=== PATIENT | female | born 1935 | race Caucasian/White ===

== ENCOUNTER 2016-11-27 14:59 | Inpatient (IN) | payer MEDICARE, OTHER ==
[~2016-11-27] VITALS: Ht 167.6 cm; Wt 47.3 kg
[2016-11-27] MEDS ORDERED: SODIUM CHLORIDE 0.9% 1,000 ML IV ONE (15:23)
[2016-11-27] MEDS ORDERED: ASPIRIN 81 MG TABLET CHEW PO ONE (15:30)
[2016-11-27] MEDS ORDERED: ASPIRIN 81 MG TABLET CHEW ONE (15:46)
[2016-11-27 16:07] LABS: ASPARTATE AMINO TRANSFERASE 28 U/L (15-37); BLOOD UREA NITROGEN 29 mg/dL (7-18)
[2016-11-27 16:14] LABS: IS PT STATUS REG ER OR PRE ER? YES
[2016-11-27] MEDS ORDERED: LEVO88TA4 PO (16:18)
[2016-11-27] MEDS ORDERED: ATOR20TA9 PO (16:18)
[2016-11-27] MEDS ORDERED: CLOP75TA PO (16:18)
[2016-11-27] MEDS ORDERED: ASPI-496 PO (16:18)
[2016-11-27] MEDS ORDERED: LISI2.5T PO (16:18)
[2016-11-27] MEDS ORDERED: BUPR150T13 PO (16:18)
[2016-11-27] MEDS ORDERED: FURO20TA3 PO (16:18)
[2016-11-27] MEDS ORDERED: CARV6.252 PO (16:18)
[2016-11-27] MEDS ORDERED: HEPARIN 25,000 UNITS/500ML PMX 500 ML IV PRN ×2 (17:00→20:00)
[2016-11-27] MEDS ORDERED: HEPARIN 5,000 UNITS/ML, 1ML IV ONE ×2 (17:00→20:00)
[2016-11-27] MEDS ORDERED: HEPARIN 5,000 UNITS/ML, 1ML IV PRN ×2 (17:00→20:00)
[2016-11-27] MEDS ORDERED: HEPARIN 5,000 UNITS/ML, 1ML ONE (17:12)
[2016-11-27] MEDS ORDERED: HEPARIN 25,000 UNITS/500ML PMX 500 ML ONE (17:12)
[2016-11-27] MEDS ORDERED: ONDANSETRON 2MG/ML, 2ML IVPush PRN (17:30)
[2016-11-27] MEDS ORDERED: morphine SULFATE 10 MG/ML, 1ML IVPush PRN (17:30)
[2016-11-27] MEDS ORDERED: GUAIFENESIN/DM 200-20MG, 10ML UDC PO PRN (17:30)
[2016-11-27 18:51] VITALS: BP 135/79
[2016-11-27 21:00] VITALS: BP 124/68
[2016-11-27] MEDS ORDERED: FAMOTIDINE 20 MG/2 ML IVPush SCH (21:00)
[2016-11-27] MEDS: FAMOTIDINE 20 MG TABLET PO SCH ×2 (22:55→22:59)
[2016-11-27] MEDS: ATORVASTATIN 20 MG TABLET PO SCH ×2 (22:55→22:59)
[2016-11-27] MEDS: SODIUM CHLORIDE 0.9% 1,000 ML IV SCH (23:22)
[2016-11-27 23:52] LABS: IS PT STATUS REG ER OR PRE ER? NO
[2016-11-28 02:05] VITALS: BP 112/64
[2016-11-28] MEDS: LEVOTHYROXINE 88 MCG TABLET PO SCH (05:30)
[2016-11-28 06:34] LABS: BLOOD UREA NITROGEN 36 mg/dL (7-18)
[2016-11-28 09:00] VITALS: BP 134/61
[2016-11-28] MEDS ORDERED: CARVEDILOL 6.25 MG TABLET PO SCH (09:00)
[2016-11-28] MEDS: SODIUM CHLORIDE 0.9% 1,000 ML IV SCH (09:20)
[2016-11-28] MEDS: ASPIRIN 81 MG TABLET EC PO SCH (09:21)
[2016-11-28] MEDS: LISINOPRIL 5 MG TABLET PO SCH (09:21)
[2016-11-28] MEDS: CLOPIDOGREL 75 MG TABLET PO SCH (09:21)
[2016-11-28] MEDS: ATORVASTATIN 20 MG TABLET PO SCH (09:22)
[2016-11-28] MEDS: BUPROPION SR 150 MG TABLET PO SCH (09:22)
[2016-11-28] MEDS: FAMOTIDINE 20 MG TABLET PO SCH (09:23)
[2016-11-28 12:03] LABS: IS PT STATUS REG ER OR PRE ER? NO
[2016-11-28] MEDS: DOXYCYCLINE 100MG TABLET PO SCH ×2 (12:07→21:32)
[2016-11-28] MEDS: GUAIFENESIN 200 MG TABLET PO SCH ×3 (12:07→21:31)
[2016-11-28 15:06] VITALS: BP 122/58
[2016-11-28 17:06] LABS: IS PT STATUS REG ER OR PRE ER? NO
[2016-11-28] MEDS ORDERED: methylPREDNISolone 4mg DOSE PACK ONE (17:27)
[2016-11-28] MEDS ORDERED: methylPREDNISolone 4mg DOSE PACK PO SCH (17:30)
[2016-11-28 19:22] VITALS: BP 122/61
[2016-11-28] MEDS: CARVEDILOL 6.25 MG TABLET PO SCH (21:31)
[2016-11-29 00:58] VITALS: BP 132/68
[2016-11-29 05:45] LABS: BLOOD UREA NITROGEN 23 mg/dL (7-18)
[2016-11-29] MEDS: GUAIFENESIN 200 MG TABLET PO SCH ×2 (06:50→11:39)
[2016-11-29] MEDS: LEVOTHYROXINE 88 MCG TABLET PO SCH (06:50)
[2016-11-29 07:01] VITALS: BP 154/65
[2016-11-29] MEDS ORDERED: FAMOTIDINE 20 MG TABLET PO SCH (09:00)
[2016-11-29] MEDS: ASPIRIN 81 MG TABLET EC PO SCH (09:02)
[2016-11-29] MEDS: CARVEDILOL 6.25 MG TABLET PO SCH (09:02)
[2016-11-29] MEDS: LISINOPRIL 5 MG TABLET PO SCH (09:02)
[2016-11-29] MEDS: CLOPIDOGREL 75 MG TABLET PO SCH (09:02)
[2016-11-29] MEDS: BUPROPION SR 150 MG TABLET PO SCH (09:02)
[2016-11-29] MEDS: DOXYCYCLINE 100MG TABLET PO SCH (09:02)
[2016-11-29] MEDS ORDERED: METH4TAB PO (10:44)
[2016-11-29] MEDS ORDERED: DOXY100T PO (10:44)
== END 2016-11-29 12:25 | disposition home or self-care (01) | DRG 280 ==
LOC: ED 16:42 → EDIP 16:43 → ED 16:49 → 5SO 18:38 → DCLOUNGE 11-29 12:00
PROVIDERS: ADMIT Internal Medicine; ATTEND Internal Medicine
DX: I21.4 Non-ST elevation (NSTEMI) myocardial infarction (principal); K85.90 Acute pancreatitis without necrosis or infection, unspecified; N17.0 Acute kidney failure with tubular necrosis; I13.0 Hypertensive heart and chronic kidney disease with heart failure and stage 1 through stage 4 chronic kidney disease, or unspecified chronic kidney disease; I47.2 Ventricular tachycardia; I50.22 Chronic systolic (congestive) heart failure; J44.0 Chronic obstructive pulmonary disease with (acute) lower respiratory infection; I25.5 Ischemic cardiomyopathy; E78.5 Hyperlipidemia, unspecified; E86.0 Dehydration; F17.210 Nicotine dependence, cigarettes, uncomplicated; I73.9 Peripheral vascular disease, unspecified; J20.9 Acute bronchitis, unspecified; F32.9 Major depressive disorder, single episode, unspecified; I25.110 Atherosclerotic heart disease of native coronary artery with unstable angina pectoris; K52.9 Noninfective gastroenteritis and colitis, unspecified; N18.3 Chronic kidney disease, stage 3 (moderate); Z66 Do not resuscitate; Z79.02 Long term (current) use of antithrombotics/antiplatelets; Z79.82 Long term (current) use of aspirin; I25.2 Old myocardial infarction; Z79.899 Other long term (current) drug therapy; Z82.49 Family history of ischemic heart disease and other diseases of the circulatory system; Z95.5 Presence of coronary angioplasty implant and graft; Z90.710 Acquired absence of both cervix and uterus
CPT/HCPCS: 36415; 71010; 80048; 80053; 80061; 83690; 83880; 84443; 84484; 85025; 85520; 85610; 85730; 87324; 93005; 93306; 96361; 96365; 96375; J1644; J7509; J7030

== ENCOUNTER → 2018-08-21 | Outpatient (CLI) | payer MEDICARE, OTHER ==
[~2018-08-21] MED LIST: ASPI-496 PO; ATOR20TA37 PO; BUPR150T13 PO; CARV6.252 PO; CLOP75TA PO; DOXY100T PO; FURO20TA3 PO; LEVO88TA4 PO; LISI2.5T PO; METH4TAB PO
== END | disposition home or self-care (01) ==
LOC: CVU 15:48
PROVIDERS: ATTEND Physician Assistant
DX: I08.3 Combined rheumatic disorders of mitral, aortic and tricuspid valves (principal); I50.22 Chronic systolic (congestive) heart failure; I25.2 Old myocardial infarction; F17.210 Nicotine dependence, cigarettes, uncomplicated; Z95.818 Presence of other cardiac implants and grafts
CPT/HCPCS: 93306

== ENCOUNTER → 2018-12-07 | Outpatient (CLI) | payer MEDICARE, OTHER | END | disposition home or self-care (01) | LOC: CFH 12:38 | PROVIDERS: ATTEND Internal Medicine | DX: J44.0 Chronic obstructive pulmonary disease with (acute) lower respiratory infection (principal); J18.1 Lobar pneumonia, unspecified organism; I77.810 Thoracic aortic ectasia; I51.7 Cardiomegaly | CPT/HCPCS: 71046 ==

== ENCOUNTER 2018-12-21 15:58 | Outpatient (CLI) | payer MEDICARE, OTHER | END 2018-12-21 23:59 | disposition home or self-care (01) | LOC: CFH 15:58 | PROVIDERS: ATTEND Internal Medicine | DX: J84.10 Pulmonary fibrosis, unspecified (principal); I51.7 Cardiomegaly | CPT/HCPCS: 71046 ==

== ENCOUNTER 2018-12-22 09:49 | Observation (INO) | payer MEDICARE, OTHER ==
[~2018-12-22] VITALS: Ht 170.2 cm; Wt 48.8 kg
--- NOTE | 2018-12-22 10:14 | NUR ---
83 YEAR OLD FEMALE PRESENTS TO THE ER FOR INCREASE IN WEAKNESS THAT HAS BEEN PROGRESSING OVER THE PAST YEAR. PT CAME TODAY DUE TO THE INCREASE IN WEAKNESS WITH ASSOCIATED SOB THAT HAS NOW STARTED.. PT IN BED AND IN GOWN. CARDIAC MONITORING, O2, AND NIBP MONITORING IN PLACE. EKG DONE AT THIS TIME. NO WANTS OR NEEDS AT THIS TIME. AWAITING FURTHER ORDERS.
[2018-12-22] MEDS ORDERED: SODIUM CHLORIDE FLUSH 10ML SYR IVF ONE (10:30)
[2018-12-22 10:52] LABS: BASOPHILS # (AUTO) 0.05 x10^3/uL (0-0.1); BASOPHILS % (AUTO) 1 % (0-1); EOSINOPHILS # (AUTO) 0.62 x10^3/uL (0-0.4); EOSINOPHILS % (AUTO) 9 % (1-7); LYMPHOCYTES # (AUTO) 0.81 x10^3/uL (1-3.4); LYMPHOCYTES % (AUTO) 12 % (22-44); MD NO; MEAN CORPUSCULAR HEMOGLOBIN 29.6 pg (27.0-34.8); MEAN CORPUSCULAR HGB CONC 32.2 g/dL (32.4-35.8); MEAN CORPUSCULAR VOLUME 91.9 fL (80-100); MEAN PLATELET VOLUME 8.4 fL (7.4-10.4); MONOCYTES # (AUTO) 0.91 x10^3/uL (0.2-0.8); MONOCYTES % (AUTO) 13 % (2-9); NEUTROPHILS # (AUTO) 4.61 x10^3/uL (1.8-6.8); NEUTROPHILS % (AUTO) 66 % (42-75); PLATELET COUNT 204 x10^3/uL (130-400); RED BLOOD COUNT 3.49 x10^6/uL (3.82-5.3); RED CELL DISTRIBUTION WIDTH 19.1 % (9.6-15.2)
[2018-12-22 11:01] LABS: INTERNATIONAL NORMALIZED RATIO 1.15 (0.93-1.1)
[2018-12-22 11:05] LABS: ALANINE AMINOTRANSFERASE 10 U/L (12-78); ALBUMIN 3.4 g/dL (3.4-5.0); ANION GAP 6 mmol/L (5-15); CALCIUM 8.8 mg/dL (8.5-10.1); CHLORIDE 110 mmol/L (98-107); CREATININE 1.01 mg/dL (0.55-1.02)
[2018-12-22 11:10] LABS: ALKALINE PHOSPHATASE 83 U/L (45-117); BILIRUBIN,TOTAL 0.7 mg/dL (0.2-1.0); TOTAL PROTEIN 6.2 g/dL (6.4-8.2); TROPONIN I 0.044 ng/mL (0.000-0.045)
[2018-12-22 11:16] LABS: THYROID STIMULATING HORMONE 0.266 mIU/L (0.358-3.740)
--- NOTE | 2018-12-22 12:06 | NUR ---
unable to complete med rec. pt does not know meds and doses.
[2018-12-22 12:39] LABS: MICROSCOPIC AUTO
[2018-12-22 12:47] VITALS: BP 145/72
[2018-12-22 14:23] VITALS: BP 145/72
[2018-12-22 14:24] VITALS: BP 145/72
[2018-12-22] MEDS ORDERED: ONDANSETRON ODT 4 MG PO PRN (14:30)
[2018-12-22] MEDS ORDERED: ENOXAPARIN 40 MG/0.4 ML SQ SCH (14:30)
[2018-12-22] MEDS ORDERED: LABETALOL 5 MG/ML SYRINGE IVPush PRN (14:30)
[2018-12-22] MEDS ORDERED: ONDANSETRON 2MG/ML, 2ML IVPush PRN (14:30)
[2018-12-22] MEDS ORDERED: POLYETHYLENE GLYCOL 17 GM PACKET PO PRN (14:30)
[2018-12-22] MEDS ORDERED: CARVEDILOL 6.25 MG TABLET PO SCH (21:00)
[2018-12-22] MEDS ORDERED: ATORVASTATIN 20 MG TABLET PO SCH (21:00)
[2018-12-23] MEDS ORDERED: LEVOTHYROXINE 88 MCG TABLET PO SCH (07:30)
[2018-12-23] MEDS ORDERED: CLOPIDOGREL 75 MG TABLET PO SCH (09:00)
[2018-12-23] MEDS ORDERED: SENNA/DOCUSATE TABLET PO SCH (09:00)
[2018-12-23] MEDS ORDERED: LISINOPRIL 5 MG TABLET PO SCH (09:00)
[2018-12-23] MEDS ORDERED: ASPIRIN 81 MG TABLET EC PO SCH (09:00)
== END 2018-12-22 18:27 | disposition left against medical advice (07) ==
LOC: ED 11:05 → INTOOBSV 11:15 → EDIP 11:15 → 5SO 12:38
PROVIDERS: ADMIT Hospitalist; ATTEND Hospitalist
DX: R06.02 Shortness of breath (principal); D64.9 Anemia, unspecified; I27.20 Pulmonary hypertension, unspecified; I50.30 Unspecified diastolic (congestive) heart failure; I25.5 Ischemic cardiomyopathy; I25.2 Old myocardial infarction; I25.10 Atherosclerotic heart disease of native coronary artery without angina pectoris; E03.9 Hypothyroidism, unspecified; I35.1 Nonrheumatic aortic (valve) insufficiency; I73.9 Peripheral vascular disease, unspecified; F17.210 Nicotine dependence, cigarettes, uncomplicated; Z66 Do not resuscitate; Z90.710 Acquired absence of both cervix and uterus; Z95.5 Presence of coronary angioplasty implant and graft
CPT/HCPCS: 36415; 71045; 80053; 81001; 83880; 84443; 84484; 85025; 85610; 93005; 99284; G0378

== ENCOUNTER 2019-01-04 11:27 | Outpatient (CLI) | payer MEDICARE, OTHER | END 2019-01-04 23:59 | disposition home or self-care (01) | LOC: CFH 11:27 | PROVIDERS: ATTEND Internal Medicine | DX: M16.11 Unilateral primary osteoarthritis, right hip (principal) ==

== ENCOUNTER 2019-04-02 07:32 | Inpatient (IN) | payer MEDICARE, OTHER ==
[~2019-04-02] VITALS: Ht 165.1 cm; Wt 49.5 kg
--- NOTE | 2019-04-02 07:39 | NUR ---
PATIENT BROUGHT IN [facility] BY [facility] WITH CHIEF COMPLAINT OF SLURRED SPEACH STARTING AT 2030 PM LAST NIGHT, NO OTHER NEURO DEFICITS OF COMPLAINTS. THIS MORNING SPEECH STILL ALTERED AND PATIENT STATED SHES STARTED FEELING SOB THUS NOTIFIYING EMS. THE PATIENT ARRIVES ALERT ORIENTS, CMS AND STRENGTH INTACT. MINIMAL SLUR TO SPEECH AT THIS TIME, VITAL SIGNS STABLE.
[2019-04-02] MEDS ORDERED: SPIR25TA5 PO (07:56)
[2019-04-02] MEDS ORDERED: FURO20TA3 PO (07:56)
[2019-04-02 08:17] LABS: BASOPHILS % (AUTO) 0 % (0-1); EOSINOPHILS % (AUTO) 9 % (1-7); LYMPHOCYTES # (AUTO) 1.09 x10^3/uL (1-3.4); LYMPHOCYTES % (AUTO) 20 % (22-44); MD NO; MEAN CORPUSCULAR VOLUME 86.9 fL (80-100); MONOCYTES # (AUTO) 0.71 x10^3/uL (0.2-0.8); MONOCYTES % (AUTO) 13 % (2-9); NEUTROPHILS # (AUTO) 3.08 x10^3/uL (1.8-6.8); NEUTROPHILS % (AUTO) 57 % (42-75); PLATELET COUNT 247 x10^3/uL (130-400); RED BLOOD COUNT 3.83 x10^6/uL (3.82-5.3); RED CELL DISTRIBUTION WIDTH 19.6 % (9.6-15.2)
[2019-04-02 08:22] LABS: ALANINE AMINOTRANSFERASE 20 U/L (12-78); ALBUMIN 3.8 g/dL (3.4-5.0); ANION GAP 5 mmol/L (5-15); CALCIUM 9.1 mg/dL (8.5-10.1); CHLORIDE 112 mmol/L (98-107); CREATININE 1.35 mg/dL (0.55-1.02)
--- NOTE | 2019-04-02 08:22 | NUR ---
PATIENT TO CT
[2019-04-02 08:26] LABS: ALKALINE PHOSPHATASE 105 U/L (45-117); BILIRUBIN,TOTAL 0.5 mg/dL (0.2-1.0); TOTAL PROTEIN 6.8 g/dL (6.4-8.2); TROPONIN I 0.054 ng/mL (0.000-0.045)
[2019-04-02] MEDS ORDERED: FUROSEMIDE 20 MG/2 ML ONE (08:27)
[2019-04-02 08:30] LABS: INTERNATIONAL NORMALIZED RATIO 1.2 (0.93-1.1); PROTHROMBIN TIME 12.5 Seconds (9.6-11.5)
[2019-04-02] MEDS ORDERED: FUROSEMIDE 40 MG/4 ML IV ONE ×2 (08:30→14:00)
--- NOTE | 2019-04-02 08:35 | NUR ---
PATIENT BACK FROM CT, RESTING IN BED, CALL LIGHT IN REACH
--- NOTE | 2019-04-02 08:53 | NUR ---
REPORT TO SOFÍA ARRINGTON
--- NOTE | 2019-04-02 08:54 | NUR ---
REPORT RECEIVED FROM MURPHY MORAN.
--- NOTE | 2019-04-02 10:07 | NUR ---
REPORT CALLED TO PT UPDATED ON PLAN OF CARE AND AWAITING TRANSPORT AT THIS TIME. DENIES ANY FURTHER NEEDS OR CONCERNS.
[2019-04-02] MEDS ORDERED: ACETAMINOPHEN 650 MG/20.3 ML UDC PO PRN (10:30)
[2019-04-02] MEDS ORDERED: ONDANSETRON 4 MG TABLET PO PRN (10:30)
[2019-04-02] MEDS ORDERED: ONDANSETRON 2MG/ML, 2ML IVPush PRN (10:30)
[2019-04-02] MEDS ORDERED: OMNIPAQUE 350 MG/ML, 100ML BOTTLE ONE (11:02)
[2019-04-02] MEDS: NICOTINE 7 MG/24 HR PATCH.TD24 TD SCH (11:30)
[2019-04-02 11:48] VITALS: BP 146/79
[2019-04-02 12:33] LABS: HEMOGLOBIN A1C 5.8 % (4.2-6.3)
[2019-04-02 14:19] LABS: TROPONIN I 0.048 ng/mL (0.000-0.045)
[2019-04-02] MEDS ORDERED: FUROSEMIDE 40 MG TABLET ONE (16:22)
[2019-04-02] MEDS: FUROSEMIDE 80 MG TABLET PO SCH (16:25)
[2019-04-02 16:30] VITALS: BP 147/77
[2019-04-02 19:54] VITALS: BP 143/71
[2019-04-02] MEDS: ATORVASTATIN 80 MG TABLET PO SCH (20:47)
[2019-04-02] MEDS ORDERED: ATORVASTATIN 40 MG TABLET PO SCH (21:00)
[2019-04-02 21:54] LABS: MICROSCOPIC NOT IND
[2019-04-03] VITALS (7 sets, daily range): BP systolic 105–139; BP diastolic 59–77
[2019-04-03 05:00] LABS: MEAN CORPUSCULAR HEMOGLOBIN 27.4 pg (27.0-34.8); MEAN CORPUSCULAR HGB CONC 31.7 g/dL (32.4-35.8); MEAN CORPUSCULAR VOLUME 86.7 fL (80-100); PLATELET COUNT 227 x10^3/uL (130-400); RED BLOOD COUNT 3.67 x10^6/uL (3.82-5.3); RED CELL DISTRIBUTION WIDTH 19.6 % (9.6-15.2)
[2019-04-03 05:06] LABS: ANION GAP 7 mmol/L (5-15); CALCIUM 9.2 mg/dL (8.5-10.1); CHLORIDE 107 mmol/L (98-107)
[2019-04-03] MEDS: ASPIRIN 325 MG TABLET PO SCH (05:11)
[2019-04-03 05:12] LABS: CHOLESTEROL, TOTAL 132 mg/dL (140-239); HDL CHOL % 50 % (28-40); HDL CHOLESTEROL (DIRECT) 66 mg/dL (40-60); LDL CHOLESTEROL,CALCULATED 49 mg/dL (54-169); LDL/HDL RATIO 0.7 (0.5-3.0); TRIGLYCERIDES 85 mg/dL (50-200); VLDL CHOLESTEROL 17 mg/dL (0-25)
[2019-04-03 05:42] LABS: BASOPHILS # (AUTO) 0.02 x10^3/uL (0-0.1); BASOPHILS % (AUTO) 0 % (0-1); EOSINOPHILS # (AUTO) 0.54 x10^3/uL (0-0.4); EOSINOPHILS % (AUTO) 9 % (1-7); LYMPHOCYTES % (AUTO) 21 % (22-44); MD SCAN; MONOCYTES # (AUTO) 0.85 x10^3/uL (0.2-0.8); MONOCYTES % (AUTO) 14 % (2-9); NEUTROPHILS # (AUTO) 3.42 x10^3/uL (1.8-6.8); NEUTROPHILS % (AUTO) 56 % (42-75)
[2019-04-03] MEDS: CLOPIDOGREL 75 MG TABLET PO SCH (08:23)
[2019-04-03] MEDS: BUPROPION SR 150 MG TABLET PO SCH (08:23)
[2019-04-03] MEDS: LEVOTHYROXINE 88 MCG TABLET PO SCH (08:23)
[2019-04-03] MEDS: FUROSEMIDE 80 MG TABLET PO SCH (08:23)
[2019-04-03] MEDS: NICOTINE 7 MG/24 HR PATCH.TD24 TD SCH (11:30)
[2019-04-03] MEDS: CARVEDILOL 6.25 MG TABLET PO SCH (17:51)
[2019-04-03] MEDS: ATORVASTATIN 80 MG TABLET PO SCH (20:32)
[2019-04-04 05:42] VITALS: BP 122/70
[2019-04-04] MEDS: ASPIRIN 325 MG TABLET PO SCH (05:43)
[2019-04-04] MEDS: CARVEDILOL 6.25 MG TABLET PO SCH (05:43)
[2019-04-04] MEDS ORDERED: HEPARIN 1,000 UNITS/ML, 10ML ONE (06:09)
[2019-04-04] MEDS ORDERED: BUPIVACAINE/PF 0.5% ONE (06:09)
[2019-04-04] MEDS ORDERED: EPINEPHRINE 1 MG/ML, 1ML ONE (06:09)
[2019-04-04] MEDS ORDERED: PROTAMINE SULFATE 10 MG/ML, 5ML ONE (06:09)
[2019-04-04] MEDS ORDERED: PAPAVERINE 30 MG/ML, 2ML ONE (06:09)
[2019-04-04] MEDS ORDERED: THROMBIN 5,000 UNIT VIAL TP ONE (06:14)
[2019-04-04] MEDS ORDERED: LIDOCAINE 1%, 20ML ONE (06:14)
[2019-04-04] MEDS ORDERED: BACITRACIN 50,000 UNIT ONE (06:14)
[2019-04-04] MEDS ORDERED: FENTANYL PF 250 MCG/5ML ONE (07:25)
[2019-04-04] MEDS ORDERED: PROPOFOL 10 MG/ML, 20ML ONE (07:26)
[2019-04-04] MEDS ORDERED: ROCURONIUM 10MG/ML,5ML ONE (07:27)
[2019-04-04] MEDS ORDERED: SUCCINYLCHOLINE 20 MG/ML, 10ML ONE (08:42)
[2019-04-04] MEDS ORDERED: DEXAMETHASONE 4 MG/ML, 1ML ONE (08:43)
[2019-04-04] MEDS ORDERED: GLYCOPYRROLATE 0.2MG/1ML, 5ML ONE (08:43)
[2019-04-04] MEDS ORDERED: ONDANSETRON 2MG/ML, 2ML ONE (08:43)
[2019-04-04] MEDS ORDERED: EPHEDRINE 50 MG/ML, 1ML ONE ×2 (08:43→09:23)
[2019-04-04] MEDS ORDERED: ONDANSETRON ODT 8 MG PO PRN (09:30)
[2019-04-04] MEDS ORDERED: HYDROmorphone 2 MG/ML, 1ML IVPush PRN ×2 (09:30→11:00)
[2019-04-04] MEDS ORDERED: FENTANYL PF 100 MCG/2ML IV PRN (09:30)
[2019-04-04] MEDS ORDERED: PROMETHAZINE 25 MG/ML, 1ML IV PRN (09:30)
[2019-04-04] MEDS ORDERED: EPHEDRINE 50 MG/ML, 1ML IVPush PRN (09:30)
[2019-04-04] MEDS ORDERED: MIDAZOLAM 1 MG/ML, 5ML IV PRN (09:30)
[2019-04-04] MEDS ORDERED: ACETAMINOPHEN 325 MG TABLET PO PRN (09:30)
[2019-04-04] MEDS ORDERED: OXYcodone 5 MG/5 ML ORAL.SOL UDC PO PRN (09:30)
[2019-04-04] MEDS ORDERED: MEPERIDINE/PF 25MG/ML,1ML IVPush PRN (09:30)
[2019-04-04] MEDS ORDERED: DIAZEPAM 5 MG/ML, 2ML IVPush PRN (09:30)
[2019-04-04] MEDS ORDERED: PROMETHAZINE 12.5 MG SUPP PR PRN (09:30)
[2019-04-04] MEDS ORDERED: ALBUTEROL SULFATE 2.5 MG/3 ML NPPB PRN (09:30)
[2019-04-04] MEDS ORDERED: hydrALAzine 20 MG/ML, 1ML IV PRN (09:30)
[2019-04-04] MEDS ORDERED: HALOPERIDOL 5 MG/ML IV PRN (09:30)
[2019-04-04] MEDS ORDERED: LABETALOL 5MG/ML, 20ML IV PRN (09:30)
[2019-04-04] MEDS ORDERED: ONDANSETRON 2MG/ML, 2ML IV PRN ×2 (09:30→11:00)
[2019-04-04] MEDS ORDERED: HYDROcodone/APAP 5/325 TABLET ONE (10:22)
[2019-04-04] MEDS: CLOPIDOGREL 75 MG TABLET PO SCH (10:30)
[2019-04-04] MEDS: LEVOTHYROXINE 88 MCG TABLET PO SCH (10:31)
[2019-04-04] MEDS: BUPROPION SR 150 MG TABLET PO SCH (10:36)
[2019-04-04] MEDS: POTASSIUM CHLORIDE 20 MEQ TAB.ER.PRT PO SCH (10:36)
[2019-04-04] MEDS: FUROSEMIDE 10 MG/ML ORAL SOL PO SCH (10:38)
[2019-04-04] MEDS ORDERED: morphine SULFATE 10 MG/ML, 1ML IV PRN (11:00)
[2019-04-04] MEDS: HYDROcodone/APAP 5/325 TABLET PO PRN ×2 (11:09→12:34)
[2019-04-04] MEDS: NICOTINE 7 MG/24 HR PATCH.TD24 TD SCH (11:12)
[2019-04-04] MEDS: CEFAZOLIN PMX 1GM/50ML 50 ML IVPB SCH ×2 (11:14→19:26)
[2019-04-04] MEDS ORDERED: POTASSIUM CHLORIDE 20 MEQ in LACTATED RINGERS 1,000 ML IV SCH (12:00)
[2019-04-04] MEDS: KETOROLAC 30 MG/1 ML IV PRN (17:26)
[2019-04-04] MEDS ORDERED: KETOROLAC 30 MG/1 ML IM PRN (17:30)
[2019-04-04] MEDS: MIDODRINE 5 MG TABLET PO SCH (17:31)
[2019-04-04] MEDS ORDERED: CARVEDILOL 6.25 MG TABLET PO SCH (18:00)
[2019-04-04] MEDS: HEPARIN 5,000 UNITS/ML, 1ML SQ SCH (20:28)
[2019-04-04] MEDS: ATORVASTATIN 80 MG TABLET PO SCH (20:28)
[2019-04-04] MEDS: SODIUM CHLORIDE FLUSH 10ML SYR IVF SCH (20:29)
[2019-04-05] MEDS: MIDODRINE 5 MG TABLET PO SCH ×3 (02:36→17:13)
[2019-04-05] MEDS: HEPARIN 5,000 UNITS/ML, 1ML SQ SCH ×3 (04:08→20:00)
[2019-04-05] MEDS: HYDROcodone/APAP 5/325 TABLET PO PRN (04:27)
[2019-04-05] MEDS: LEVOTHYROXINE 88 MCG TABLET PO SCH (06:04)
[2019-04-05] MEDS: ASPIRIN 325 MG TABLET PO SCH (06:04)
[2019-04-05 08:01] LABS: MEAN CORPUSCULAR HEMOGLOBIN 27.3 pg (27.0-34.8); MEAN CORPUSCULAR HGB CONC 31.4 g/dL (32.4-35.8); MEAN CORPUSCULAR VOLUME 86.9 fL (80-100); MEAN PLATELET VOLUME 9.3 fL (7.4-10.4); PLATELET COUNT 204 x10^3/uL (130-400); RED BLOOD COUNT 3.35 x10^6/uL (3.82-5.3); RED CELL DISTRIBUTION WIDTH 19.3 % (9.6-15.2)
[2019-04-05 08:11] LABS: ANION GAP 6 mmol/L (5-15); CALCIUM 8.4 mg/dL (8.5-10.1); CHLORIDE 102 mmol/L (98-107); CREATININE 1.29 mg/dL (0.55-1.02)
[2019-04-05 08:24] LABS: BASOPHILS # (AUTO) 0.01 x10^3/uL (0-0.1); BASOPHILS % (AUTO) 0 % (0-1); EOSINOPHILS % (AUTO) 0 % (1-7); LYMPHOCYTES # (AUTO) 0.47 x10^3/uL (1-3.4); LYMPHOCYTES % (AUTO) 5 % (22-44); MD SCAN; MONOCYTES # (AUTO) 1.55 x10^3/uL (0.2-0.8); MONOCYTES % (AUTO) 15 % (2-9); NEUTROPHILS # (AUTO) 8.29 x10^3/uL (1.8-6.8); NEUTROPHILS % (AUTO) 80 % (42-75)
[2019-04-05] MEDS: SODIUM CHLORIDE FLUSH 10ML SYR IVF SCH ×2 (08:34→20:43)
[2019-04-05] MEDS: POTASSIUM CHLORIDE 20 MEQ TAB.ER.PRT PO SCH (08:34)
[2019-04-05] MEDS: BUPROPION SR 150 MG TABLET PO SCH (08:50)
[2019-04-05] MEDS: CLOPIDOGREL 75 MG TABLET PO SCH (08:50)
[2019-04-05] MEDS: FUROSEMIDE 10 MG/ML ORAL SOL PO SCH (08:51)
[2019-04-05] MEDS ORDERED: ASPI325T17 PO (11:13)
[2019-04-05] MEDS ORDERED: ATOR-2 PO (11:13)
[2019-04-05] MEDS ORDERED: CARV3.1212 PO (11:13)
[2019-04-05] MEDS: NICOTINE 7 MG/24 HR PATCH.TD24 TD SCH (12:09)
[2019-04-05 13:20] VITALS: BP 122/55
[2019-04-05 18:44] VITALS: BP 114/64
[2019-04-05] MEDS: ATORVASTATIN 80 MG TABLET PO SCH (20:43)
[2019-04-05] MEDS: KETOROLAC 30 MG/1 ML IV PRN (21:12)
[2019-04-06] MEDS: MIDODRINE 5 MG TABLET PO SCH ×2 (02:00→10:00)
[2019-04-06] MEDS: HEPARIN 5,000 UNITS/ML, 1ML SQ SCH (04:00)
[2019-04-06 05:30] VITALS: BP 101/55
[2019-04-06] MEDS: ASPIRIN 325 MG TABLET PO SCH (06:24)
[2019-04-06 08:00] VITALS: BP 109/60
[2019-04-06] MEDS: BUPROPION SR 150 MG TABLET PO SCH (08:37)
[2019-04-06] MEDS: LEVOTHYROXINE 88 MCG TABLET PO SCH (08:37)
[2019-04-06] MEDS: POTASSIUM CHLORIDE 20 MEQ TAB.ER.PRT PO SCH (08:37)
[2019-04-06] MEDS: KETOROLAC 30 MG/1 ML IV PRN (08:38)
[2019-04-06] MEDS: CLOPIDOGREL 75 MG TABLET PO SCH (08:38)
[2019-04-06] MEDS ORDERED: FUROSEMIDE 40 MG TABLET PO SCH (09:00)
[2019-04-06] MEDS: SODIUM CHLORIDE FLUSH 10ML SYR IVF SCH (10:36)
== END 2019-04-06 11:10 | disposition home or self-care (01) | DRG 37 ==
LOC: ED 08:16 → EDIP 09:45 → 4EST 11:00 → CCU 04-04 09:45 → 5SO 04-05 13:16 → DCLOUNGE 04-06 10:58
PROVIDERS: ADMIT Family Medicine; ATTEND Family Medicine
PROC: 03CM0ZZ Extirpation of Matter from Right External Carotid Artery, Open Approach (ICD-10-PCS; 2019-04-04)
PROC: 03CL0ZZ Extirpation of Matter from Left Internal Carotid Artery, Open Approach (ICD-10-PCS; principal; 2019-04-04 09:00)
DX: I63.233 Cerebral infarction due to unspecified occlusion or stenosis of bilateral carotid arteries (principal); I63.512 Cerebral infarction due to unspecified occlusion or stenosis of left middle cerebral artery; I50.43 Acute on chronic combined systolic (congestive) and diastolic (congestive) heart failure; N17.0 Acute kidney failure with tubular necrosis; I13.0 Hypertensive heart and chronic kidney disease with heart failure and stage 1 through stage 4 chronic kidney disease, or unspecified chronic kidney disease; G81.91 Hemiplegia, unspecified affecting right dominant side; J81.1 Chronic pulmonary edema; E03.9 Hypothyroidism, unspecified; E78.5 Hyperlipidemia, unspecified; F17.200 Nicotine dependence, unspecified, uncomplicated; I25.10 Atherosclerotic heart disease of native coronary artery without angina pectoris; I73.9 Peripheral vascular disease, unspecified; J32.3 Chronic sphenoidal sinusitis; J44.9 Chronic obstructive pulmonary disease, unspecified; M19.90 Unspecified osteoarthritis, unspecified site; F32.9 Major depressive disorder, single episode, unspecified; R29.810 Facial weakness; R47.81 Slurred speech; R26.2 Difficulty in walking, not elsewhere classified; N18.9 Chronic kidney disease, unspecified; Z79.82 Long term (current) use of aspirin; I25.2 Old myocardial infarction; Z95.5 Presence of coronary angioplasty implant and graft; Z82.49 Family history of ischemic heart disease and other diseases of the circulatory system; Z90.710 Acquired absence of both cervix and uterus; Z72.89 Other problems related to lifestyle
CPT/HCPCS: 36415; 70450; 70496; 70498; 70551; 71045; 80048; 80053; 80061; 81003; 82533; 83036; 83880; 84484; 85018; 85025; 85610; 85730; 87081; 88300; 93005; 93306; 96374; C1729; G0378; J0171; J0690; J1100; J1644; J1885; J1940; J2405; J2704; J2720; J3010; Q9967; J0330; J2270; J2440